=== PATIENT | male | born 1955 | race Caucasian/White ===

== ENCOUNTER 2016-11-21 22:45 | Emergency (ER) | payer OTHER ==
--- NOTE | ~2016-11-21 | CR230 ---
[facility] A Service of [facility] RADIOLOGY TEXT RESULTS PATIENT: DEUCE MERCADO LOCATION: [facility] : 59 UNIT #: [id number] AGE: [address]: Caio Macias MD SEX: M ORDER DR: [id number] [facility] [address] [place], [place] [address] [id number] E MR#: [id number] Acc #: [id number] NAME: DEUCE MERCADO : 1955 SEX: M STUDY DATE/TIME: 11/21/2016 23:50 UNIT: [facility] ROOM: STUDY DESCRIPTION: CR Shoulder Min 2 View Rt Attending Physician: Martin Macias M.D. Ordering Physician: Ed Jose Mello M.D. Primary Care Physician: No Primary Care Physician MEDICAL IMAGING REPORT This report is preliminary unless electronic signature is present EXAM Right shoulder, 11/21 at 2350 hours. INDICATIONS Shoulder pain for 1 day after fall from a ladder. FINDINGS Three views of the right shoulder are compared with 02/10/2010. There is an old distal clavicle fracture. There is AC joint arthropathy, but there is no AC joint separation. No fracture or glenohumeral dislocation is seen. 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 No acute findings in the shoulder. Dictated by... Cassius Bentley Jr., M.D. THIS IS AN ELECTRONICALLY VERIFIED REPORT Cassius Bentley Jr., M.D. at 11/22/2016 9:52 PM ALIA/grant TD: 11/22/2016 07:58 JOB #: [id number] MEDICAL IMAGING REPORT Page 1 of 1 COPY
[~2016-11-21 22:45] MED LIST: ALBUTEROL17 GM INH; ALPRAZOLAM PO; ALPRAZOLAM1 MG PO; AMLODIPINE BESY10 MG PO; CIPRO PO; CLARITIN10 M2 PO; CLARITIN10 MG PO; COUMADIN PO; CRESTOR PO; CRESTOR40 MG PO; EFFEXOR PO; EFFEXOR75 M1 PO; FAMOTIDINE PO; FLAGYL PO; FLEXERIL PO; GLIPIZIDE10 MG PO; GLUCOTROL PO; HCTZ PO; HUMULIN R100 U/ML SUBQ; HYDROCHLOROTHIA25 MG PO; HYDROCODON-ACE1 EAC4 PO; IBUPROFEN PO; KETOPROFEN PO; LANTUS100 U/ML INJ; LANTUS100 U/ML SUBQ; LISINOPRIL PO; LOPID600 MG PO; LORTAB 7.5-5001 TAB PO; METFORMIN HCL1000 M1 PO; METFORMIN PO; NORVASC PO; PRILOSEC PO; PRILOSEC20 MG PO; TYLOX 5-500 CA1 EACH PO; VICODIN PO; ZESTORETIC 20/11 TAB PO; ZESTRIL40 MG PO; ZOLOFT PO; ZYLOPRIM100 MG PO
== END 2016-11-22 01:10 | disposition home or self-care (01) ==
LOC: CED 22:45
DX: S46.911A Strain of unspecified muscle, fascia and tendon at shoulder and upper arm level, right arm, initial encounter (principal); E11.9 Type 2 diabetes mellitus without complications; G51.0 Bell's palsy; F17.210 Nicotine dependence, cigarettes, uncomplicated; Z79.84 Long term (current) use of oral hypoglycemic drugs; Z79.899 Other long term (current) drug therapy; W10.9XXA Fall (on) (from) unspecified stairs and steps, initial encounter; Y92.009 Unspecified place in unspecified non-institutional (private) residence as the place of occurrence of the external cause
CPT/HCPCS: 73030; 96372; 99283; J1885

== ENCOUNTER 2017-01-21 15:18 | Emergency (ER) | payer OTHER ==
[~2017-01-21] VITALS: Ht 170.2 cm; Wt 95.2 kg
== END 2017-01-21 19:05 | disposition home or self-care (01) ==
LOC: CFTX 15:18 → CED 15:18 → CFTX 19:01
DX: S46.911D Strain of unspecified muscle, fascia and tendon at shoulder and upper arm level, right arm, subsequent encounter (principal); F32.9 Major depressive disorder, single episode, unspecified; E11.9 Type 2 diabetes mellitus without complications; I10 Essential (primary) hypertension; J45.909 Unspecified asthma, uncomplicated; W18.30XD Fall on same level, unspecified, subsequent encounter
CPT/HCPCS: 96372; 99283; J1885